=== PATIENT | female | born 1945 | race Caucasian/White ===

== ENCOUNTER 2017-12-14 08:55 | Emergency (ER) | payer OTHER ==
[~2017-12-14] VITALS: Ht 152.4 cm; Wt 49.9 kg
[~2017-12-14 08:55] MED LIST: ASPI325 PO; Amoxicillin500 MG PO; CEPH500 PO; DIAZ5 PO; HYDCOR10; HYDCOR10 PO; LEVSOD100 PO; LEVSOD50 PO; MAGIC MOUTHWASH; NAPR500 PO; SACC250C PO; Synthroid75 MCG PO; THYROX; TIMO10T BOTHEYES; TIMOPTIC 0.25%1 EACH; TIMOPTIC 0.5%1 EACH BOTHEYES; VICODIN 5-3001 EACH PO; Xalatan2.5 ML; Zithromax250 MG PO
== END 2017-12-14 10:14 | disposition home or self-care (01) ==
LOC: ER 08:55
DX: S01.112A Laceration without foreign body of left eyelid and periocular area, initial encounter (principal); W18.30XA Fall on same level, unspecified, initial encounter; Z88.0 Allergy status to penicillin; Z79.899 Other long term (current) drug therapy; E03.9 Hypothyroidism, unspecified
CPT/HCPCS: 12011; 99283

== ENCOUNTER 2018-04-02 13:16 | Inpatient (IN) | payer OTHER ==
[~2018-04-02] VITALS: Ht 170.2 cm; Wt 52.4 kg
[~2018-04-02 13:16] MED LIST changes: -HYDCOR10
[2018-04-02 13:46] LABS: BASOPHILS PERCENT AUTO 1 % (0-2); EOSINOPHILS PERCENT AUTO 0 % (0-6); Hematocrit 45.1 % (33.0-51.0); Hemoglobin 14.7 g/dL (11.5-16.0); IMMATURE GRAN ABSOLUTE AUTO 0.04 K/mm3 (0.00-0.10); IMMATURE GRAN PERCENT AUTO 0 % (0-1); LYMPHOCYTES ABSOLUTE AUTO 2.88 K/mm3 (0.84-5.20); LYMPHOCYTES PERCENT AUTO 23 % (21-46); MONOCYTES ABSOLUTE AUTO 1.79 K/mm3 (0.16-1.47); MONOCYTES PERCENT AUTO 14 % (4-13); Mean Corpuscular HGB 29.1 pg (26.0-34.0); Mean Corpuscular HGB Conc 32.6 g/dL (31.5-36.5); Mean Corpuscular Volume 89 fL (80-100); Mean Platelet Volume 10.6 fL (9.1-12.4); NEUTROPHILS ABSOLUTE AUTO 7.65 K/mm3 (1.96-9.15); NEUTROPHILS PERCENT AUTO 61 % (41-73); Platelet Count 233 K/mm3 (150-400); RDW Coefficient Variation 13.1 % (11.7-14.2); RDW Standard Deviation 42.8 fL (35.1-46.3); Red Blood Cell Count 5.06 M/mm3 (3.80-5.20); White Blood Cell Count 12.46 K/mm3 (4.00-11.30)
[2018-04-02 13:57] LABS: Source, Urine Catheter
[2018-04-02 13:57] LABS: International Normalized Ratio 1.2; Prothrombin Time Results 12.2 Sec (9.7-11.5)
[2018-04-02 14:02] LABS: Bilirubin, Urine Neg (Neg); Blood, Urine 5+ (Neg); Glucose Qualitative, Urine Neg (Neg); Ketones, Urine Neg (Neg); Leukocyte Esterase, Urine 1+ (Neg); Nitrite, Urine Neg (Neg); Protein, Urine 2+ (Neg); Urobilinogen, Urine NORM (Normal)
[2018-04-02 14:08] LABS: Albumin, Blood 4.2 g/dL (3.4-5.0); Bilirubin, Total 0.6 mg/dL (0.1-1.0); Bun/Creatinine Ratio 9.7 (12.0-20.0); Calcium, Blood 9.6 mg/dL (8.5-10.1); Globulin, Blood 4.1 g/dL (2.2-4.0); Potassium, Blood 3.4 mmol/L (3.5-5.5); Total Protein, Blood 8.3 g/dL (6.4-8.2)
[2018-04-02 14:11] LABS: Appearance, Urine Clear (Clear); Color, Urine Yellow (P-Yellow)
[2018-04-02 14:12] LABS: Bacteria Few /hpf; Granular Casts 0-2 /lpf (0); Squamous Epithelial Cells Few /hpf (Few)
[2018-04-02 19:50] LABS: Adenovirus F 40/41 Not Detected (NOT DETECT); Astrovirus Not Detected (NOT DETECT); Campylobacter Sp Not Detected (NOT DETECT); Cryptosporidium Not Detected (NOT DETECT); Cyclospora Cayetanensis Not Detected (NOT DETECT); E. Coli O157 Not Detected (NOT DETECT); Entamoeba Histolytica Not Detected (NOT DETECT); Enteroaggregative E. coli-EAEC Not Detected (NOT DETECT); Enteropathogenic E. coli-EPEC Not Detected (NOT DETECT); Enterotoxigenic E. coli-ETEC Not Detected (NOT DETECT); Giardia Lamblia Not Detected (NOT DETECT); Norovirus GI/GII Not Detected (NOT DETECT); Plesiomonas Shigelloides Not Detected (NOT DETECT); Rotavirus A Not Detected (NOT DETECT); Salmonella Sp Not Detected (NOT DETECT); Sapovirus Not Detected (NOT DETECT); Shiga Toxin-prod E. coli-STEC Not Detected (NOT DETECT); Shigella/Enteroin E. coli-EIEC Not Detected (NOT DETECT); Vibrio Cholerae Not Detected (NOT DETECT); Vibrio Sp Not Detected (NOT DETECT); Yersinia Enterocolitica Not Detected (NOT DETECT)
[2018-04-03 04:25] LABS: Hemoglobin 11.9 g/dL (11.5-16.0); Mean Corpuscular HGB 28.5 pg (26.0-34.0); Mean Corpuscular HGB Conc 32.2 g/dL (31.5-36.5); Mean Corpuscular Volume 89 fL (80-100); Mean Platelet Volume 11.2 fL (9.1-12.4); Platelet Count 145 K/mm3 (150-400); RDW Coefficient Variation 13.3 % (11.7-14.2); RDW Standard Deviation 43.6 fL (35.1-46.3); Red Blood Cell Count 4.18 M/mm3 (3.80-5.20); White Blood Cell Count 8.67 K/mm3 (4.00-11.30)
[2018-04-03 04:44] LABS: Bun/Creatinine Ratio 17.2 (12.0-20.0); Calcium, Blood 8.6 mg/dL (8.5-10.1); Creatinine, Blood 1.57 mg/dL (0.40-1.00); Potassium, Blood 4.4 mmol/L (3.5-5.5)
[2018-04-03] MEDS ORDERED: Xalatan2.5 ML BOTHEYES (12:25)
[2018-04-03] MEDS ORDERED: TIMOPTIC 0.5%1 EACH BOTHEYES (12:26)
[2018-04-03 23:53] LABS: Source, Urine Catheter
[2018-04-03 23:55] LABS: Bilirubin, Urine Neg (Neg); Blood, Urine 5+ (Neg); Glucose Qualitative, Urine Neg (Neg); Ketones, Urine 1+ (Neg); Leukocyte Esterase, Urine 2+ (Neg); Nitrite, Urine Pos (Neg); Protein, Urine 2+ (Neg); Urobilinogen, Urine NORM (Normal)
[2018-04-03 23:56] LABS: Appearance, Urine Hazy (Clear); Color, Urine Yellow (P-Yellow)
[2018-04-04 00:01] LABS: Bacteria Many /hpf; Hyaline Casts 0-2 /lpf (0-2); Squamous Epithelial Cells Not Seen /hpf (Few); White Blood Cells, Urine 25-50 /hpf (0-5)
[2018-04-04 05:38] LABS: Bun/Creatinine Ratio 27.5 (12.0-20.0); Calcium, Blood 9.1 mg/dL (8.5-10.1); Creatinine, Blood 1.2 mg/dL (0.40-1.00); Potassium, Blood 3.7 mmol/L (3.5-5.5)
== END 2018-04-04 13:47 | disposition left against medical advice (07) | DRG 683 ==
LOC: ER 13:16 → PCU 15:51 → MEDS 04-03 21:28
PROVIDERS: Hospitalist; Internal Medicine
DX: N17.9 Acute kidney failure, unspecified (principal); E27.40 Unspecified adrenocortical insufficiency; E24.0 Pituitary-dependent Cushing's disease; E87.2 Acidosis; R65.10 Systemic inflammatory response syndrome (SIRS) of non-infectious origin without acute organ dysfunction; G93.40 Encephalopathy, unspecified; E03.9 Hypothyroidism, unspecified; E86.0 Dehydration; I95.9 Hypotension, unspecified; K52.9 Noninfective gastroenteritis and colitis, unspecified; N28.89 Other specified disorders of kidney and ureter; Z88.0 Allergy status to penicillin; Z79.899 Other long term (current) drug therapy
CPT/HCPCS: 36415; 70450; 71045; 76770; 80048; 80053; 81001; 82272; 83605; 85025; 85027; 85610; 86850; 86900; 86901; 87040; 87077; 87086; 87186; 87507; 93005; 93010; 96361; 96374; 97162; 97530; 99285-25; G8978; G8979; J1720; J3480; J7030; J7120

== ENCOUNTER → 2018-06-29 | Outpatient (CLI) | payer OTHER ==
[~2018-06-29] MED LIST changes: +Xalatan2.5 ML BOTHEYES
[2018-06-29 19:54] LABS: Microalbumin, Urine Quant. 19.6 mg/L (0.000-20.000)
== END | disposition home or self-care (01) ==
LOC: LAB FUT 06-27 13:55 → LAB SHORT 14:36 → LAB 14:36
PROVIDERS: Internal Medicine Nephrology
DX: N18.2 Chronic kidney disease, stage 2 (mild) (principal); D63.1 Anemia in chronic kidney disease; N25.81 Secondary hyperparathyroidism of renal origin; E55.9 Vitamin D deficiency, unspecified; E78.00 Pure hypercholesterolemia, unspecified; R76.9 Abnormal immunological finding in serum, unspecified; R94.5 Abnormal results of liver function studies; R94.6 Abnormal results of thyroid function studies
CPT/HCPCS: 81050; 82043; 82570; 84156

== ENCOUNTER 2018-07-28 19:53 | Inpatient (IN) | payer OTHER ==
[~2018-07-28] VITALS: Ht 160 cm; Wt 54.0 kg
[2018-07-28 20:38] LABS: BASOPHILS ABSOLUTE AUTO 0.07 K/mm3 (0.00-0.23); BASOPHILS PERCENT AUTO 1 % (0-2); EOSINOPHILS ABSOLUTE AUTO 0.08 K/mm3 (0.00-0.68); EOSINOPHILS PERCENT AUTO 1 % (0-6); Hematocrit 37.8 % (33.0-51.0); Hemoglobin 12.6 g/dL (11.5-16.0); IMMATURE GRAN ABSOLUTE AUTO 0.04 K/mm3 (0.00-0.10); IMMATURE GRAN PERCENT AUTO 0 % (0-1); LYMPHOCYTES ABSOLUTE AUTO 1.55 K/mm3 (0.84-5.20); LYMPHOCYTES PERCENT AUTO 14 % (21-46); MONOCYTES ABSOLUTE AUTO 1.51 K/mm3 (0.16-1.47); MONOCYTES PERCENT AUTO 14 % (4-13); Mean Corpuscular HGB 28.7 pg (26.0-34.0); Mean Corpuscular HGB Conc 33.3 g/dL (31.5-36.5); Mean Corpuscular Volume 86 fL (80-100); Mean Platelet Volume 10.1 fL (9.1-12.4); NEUTROPHILS ABSOLUTE AUTO 7.83 K/mm3 (1.96-9.15); NEUTROPHILS PERCENT AUTO 71 % (41-73); Platelet Count 284 K/mm3 (150-400); RDW Coefficient Variation 12.2 % (11.7-14.2); RDW Standard Deviation 38.7 fL (35.1-46.3); Red Blood Cell Count 4.39 M/mm3 (3.80-5.20); White Blood Cell Count 11.08 K/mm3 (4.00-11.30)
[2018-07-28 20:57] LABS: Alanine Aminotransfer (ALT/SGP 17 U/L (12-78); Alk Phos 80 U/L (50-136); Anion Gap 16 mmol/L (6-16); Aspartate Aminotrans (AST/SGOT 14 U/L (12-37); Bilirubin, Total 0.8 mg/dL (0.1-1.0); Blood Urea Nitrogen 15 mg/dL (8-24); Bun/Creatinine Ratio 21.3 (12.0-20.0); CO2, Blood 22 mmol/L (21-32); Calcium, Blood 10.2 mg/dL (8.5-10.1); Chloride, Blood 99 mmol/L (98-108); Creatinine, Blood 0.71 mg/dL (0.40-1.00); Globulin, Blood 4.2 g/dL (2.2-4.0); Glomerular Filtration Rate >60 (60-); Glucose, Blood 58 mg/dL (70-99); Potassium, Blood 3.9 mmol/L (3.5-5.5); Sodium, Blood 137 mmol/L (136-145); Total Protein, Blood 8.2 g/dL (6.4-8.2)
[2018-07-28 21:06] LABS: Influenza A Negative (NEGATIVE); Influenza B Negative (NEGATIVE)
[2018-07-28 21:53] LABS: Magnesium, Blood 1.8 mg/dL (1.6-2.4); Troponin I 0.142 ng/mL (0.000-0.040)
[2018-07-28 22:11] LABS: Source, Urine Clean Catch
[2018-07-28 22:16] LABS: Appearance, Urine Hazy (Clear); Bilirubin, Urine Neg (Neg); Blood, Urine 5+ (Neg); Color, Urine Yellow (P-Yellow); Glucose Qualitative, Urine 2+ (Neg); Ketones, Urine 4+ (Neg); Leukocyte Esterase, Urine 3+ (Neg); Nitrite, Urine Neg (Neg); Protein, Urine 2+ (Neg); Urobilinogen, Urine NORM (Normal)
[2018-07-28 22:25] LABS: Bacteria Mod /hpf; Red Blood Cells, Urine 0-2 /hpf (0-2); Squamous Epithelial Cells Rare /hpf (Few); White Blood Cells, Urine TNTC /hpf (0-5)
[2018-07-28 22:50] LABS: U Amphetamine Screen Not Detected; U Barbituate Screen Not Detected; U Benzodiazapine Screen Not Detected; U Buprenorphine Screen Not Detected; U Cannabinoids Screen Not Detected; U Cocaine Screen Not Detected; U Methadone Screen Not Detected; U Methamphetamine Screen Not Detected; U Opiates Screen Not Detected; U Oxycodone Screen Not Detected; U Phencyclidine Screen Not Detected; U Propoxyphene Screen Not Detected
--- NOTE | 2018-07-29 03:19 | NUR ---
ADMISSION: PATIENT ARRIVED TO ROOM PCU01 AT APPROX 0155 VIA GURNEY FROM ED. PATIENT ALERT AND ORIENTED AND ABLE TO PIVOT TRANSFER FROM GURNEY TO BED, WEAK BUT STEADY. PATIENTS NECK STIFF AND PAINFULL WITH DECREASED ROM, PATIENT STATES THIS HAS BEEN HAPPENING ON AND OFF FOR YEARS. JERODNS SON AT BEDSIDE, ADMISSION COMPLETED, PATIENT ORIENTED TO CALL LIGHT, HOSPITAL POLICES AND EDUCATED ON FALL RISK. BED LOW AND LOCKED WITH EXIT ALARM ON, CALL LIGHT WITHIN REACH.
--- NOTE | 2018-07-29 06:19 | NUR ---
SHIFT SUMMARY: PATIENT HAS A HARD TIME SWALLOWING, CAN DRINK THIN LIQUIDS VERY SLOWLY SITTING ALL THE WAY UP, CANNOT GET PILLS DOWN. PATIENT HAS LOW BLOOD SUGARS SINCE ADMIT, Q4 BLOOD SUGARS ORDERED, APPLE JUICE GIVEN FOR LAST BS OF 68, WILL RECHECK IN 15 MINUTES. PATIENTS GLANDS BILATERAL UPPER NECK ARE SWOLLEN AND TENDER AND PATIENT STATES THAT SALIVA IS THICK AND FOUL, WILL INFORM ONCOMING SHIFT TO INFORM MD. PATIENT BED LOW AND LOCKED WITH EXIT ALARM ON, CALL LIGHT WITHIN REACH AND USED APPROPRIATLY.
[2018-07-29 09:26] LABS: Hematocrit 32.3 % (33.0-51.0); Hemoglobin 10.5 g/dL (11.5-16.0); Mean Corpuscular HGB 28.2 pg (26.0-34.0); Mean Corpuscular HGB Conc 32.5 g/dL (31.5-36.5); Mean Corpuscular Volume 87 fL (80-100); Mean Platelet Volume 10.3 fL (9.1-12.4); Platelet Count 221 K/mm3 (150-400); RDW Coefficient Variation 12.4 % (11.7-14.2); RDW Standard Deviation 39.1 fL (35.1-46.3); Red Blood Cell Count 3.73 M/mm3 (3.80-5.20); White Blood Cell Count 7.85 K/mm3 (4.00-11.30)
[2018-07-29 09:42] LABS: Alanine Aminotransfer (ALT/SGP 14 U/L (12-78); Albumin/Globulin Ratio 0.8 (0.8-1.8); Alk Phos 64 U/L (50-136); Anion Gap 9 mmol/L (6-16); Aspartate Aminotrans (AST/SGOT 16 U/L (12-37); Bilirubin, Total 0.5 mg/dL (0.1-1.0); Blood Urea Nitrogen 11 mg/dL (8-24); Bun/Creatinine Ratio 18.5 (12.0-20.0); CO2, Blood 22 mmol/L (21-32); Calcium, Blood 8.8 mg/dL (8.5-10.1); Chloride, Blood 106 mmol/L (98-108); Globulin, Blood 3.9 g/dL (2.2-4.0); Glomerular Filtration Rate >60 (60-); Glucose, Blood 77 mg/dL (70-99); Potassium, Blood 4.1 mmol/L (3.5-5.5); Sodium, Blood 137 mmol/L (136-145); Total Protein, Blood 6.9 g/dL (6.4-8.2)
--- NOTE | 2018-07-29 16:16 | NUR ---
SHIFT SUMMARY PT RESTING IN BED THROUGHOUT THE MORNING, UP TO RECLINER THIS AFTERNOON. PT APPEARS MUCH MORE COMFORTABLE IN RECLINER. ALERT AND ORIENTED X3. VSS. LUNG SOUNDS EXPIRATORY COARSENESS THROUGHOUT. PT C/O 4-910 NECK AND SHOULDER PAIN, MEDICATED WITH PRN AND SCHEDULED PAIN MEDS. PT UP TO BEDSIDE COMMODE WITH 1 PERSON ASSIST AND FWW. PT REQUESTING JELLO THIS AFTERNOON, TOLERATING CLEAR LIQUIDS WELL.
--- NOTE | 2018-07-29 16:19 | NUR ---
TRANSFER NOTE PT STABLE FOR TRANSFER TO MEDICAL FLOOR. REPORT GIVEN TO JONATHAN HANSON ON MEDICAL FLOOR. PT TRANSFERED TO MEDICAL FLOOR WITH BELONGINGS.
--- NOTE | 2018-07-29 16:28 | NUR ---
REPORT RECIEVED FROM VALENTIN HAMMOND AT 1610. ROOM CLEAN AND REPORT GIVEN TO ZURDO. AWAITING ARRIVAL OF PATIENT AT THIS TIME
--- NOTE | 2018-07-29 18:15 | NUR ---
SHIFT SUMMARY PT ARRIVED TO ROOM AT 1636 VIA WHEELCHAIR AND IS UP TO CHAIR DRINKING DINNER AT THIS TIME. PT UP WITH SBA TO BATHROOM. CHAIR ALARM ON. REPORT RECIEVED FROM STEPHANY AT 1605. VSS. IV PATENT AND INFUSING. LAST CBG AT 1613 WAS 140. TITLE ONE KINDERGARTEN TEACHER WILL REASSESS AROUND 2014. PT AXO X4 PLEASANT AND COOPERATIVE WITH CARE. CALL LIGHT AND TELEPHONE WITHIN REACH
--- NOTE | 2018-07-30 05:00 | NUR ---
73 Y/O FEMALE RESTED COMFORTABLY IN BED ALL EVENING. PT NOTED AT TIMES TO HAVE CONFUSION WHEN NURSE OR BAGGAGE SECURITY CHECKER INITIALLY ENTERS ROOM TO PERFORM TASKS, PT ABLE TO REORIENT SELF WITH POSITIVE ENCOURAGEMENT FROM STAFF. PT WAS TALKING TO FAMILY AT BEGINNING OF SHIFT IN CALM MANNER. PT DENIES PAIN OR NAUSEA. PTS TELEMETRY REFLECTS NSR. PTS BED ALARM APPLIED, BED LOW POSITION, CALL LIGHT AT SIDE.
--- NOTE | 2018-07-30 18:18 | NUR ---
AMA SUMMARY PT NOTIFIED NURSE AT 1630 THAT SHE WANTED TO GO HOME DESPITE MEDICAL ADVICCE TO STAY. RISKS DISCUSSED WITH PATIENT WHO STATED THAT SHE FEELS BETTER AND WILL CALL HER PCP IN THE MORNING TO FOLLOW UP WITH HIM. DR MONCADA NOTIFIED OF IMPENDING AMA, AND STATED THAT SHE WAS NOT READY TO DISCHARGE PATIENT. PATINENT AGAIN CONFIRMED THAT SHE WAS LEAVING DESPITE EDUCATION ABOUT RISKS. PT LEFT VIA WHEELCHAIR, WITH SON PRESENT AND CHARGE NURSE ESCORT AT 1728. NO IV IN PLACE AT THAT TIME. BELONGINGS RETURNED. PRIOR TO THIS DISCUSSION ABOUT AMA, PT AMBULATED WITH PEST CONTROL SERVICE SALES AGENT X4 LAPS AROUND THE UNIT AND STATED THAT SHE WAS BACK TO NORMAL FAR HER MOBILITY. DR MONCADA NOTIFIED AT 1820 THAT PT HAD LEFT AMA.
== END 2018-07-30 17:28 | disposition left against medical advice (07) | DRG 871 ==
LOC: ER 19:53 → PCU 07-29 00:02 → MEDS 07-29 01:50 → PCU 07-29 01:52 → MEDS 07-29 16:33
PROVIDERS: Emergency Medicine; ADMIT Internal Medicine
DX: A41.9 Sepsis, unspecified organism (principal); J18.9 Pneumonia, unspecified organism; G92 Toxic encephalopathy; N39.0 Urinary tract infection, site not specified; E27.40 Unspecified adrenocortical insufficiency; E86.0 Dehydration; R13.10 Dysphagia, unspecified; E16.2 Hypoglycemia, unspecified; E83.52 Hypercalcemia; E03.9 Hypothyroidism, unspecified; H40.9 Unspecified glaucoma; Z79.52 Long term (current) use of systemic steroids; Z51.5 Encounter for palliative care
CPT/HCPCS: 36415; 70450; 70491; 71046; 80053; 81001; 82533; 82947; 83605; 83735; 83880; 84145; 84443; 84484; 85025; 85027; 85651; 87086; 87804; 93005; 93010; 96361; 96374; 96375; 99285-25; J0696; J1720; J1885; J2405; J3010; J7030; J7042; P9612; Q9967

== ENCOUNTER 2018-09-27 10:37 | Emergency (ER) | payer OTHER ==
[~2018-09-27] VITALS: Ht 152.4 cm; Wt 49.9 kg
[2018-09-27 12:01] LABS: BASOPHILS ABSOLUTE AUTO 0.07 K/mm3 (0.00-0.23); BASOPHILS PERCENT AUTO 1 % (0-2); EOSINOPHILS ABSOLUTE AUTO 0.32 K/mm3 (0.00-0.68); EOSINOPHILS PERCENT AUTO 3 % (0-6); Hemoglobin 11.5 g/dL (11.5-16.0); IMMATURE GRAN ABSOLUTE AUTO 0.03 K/mm3 (0.00-0.10); IMMATURE GRAN PERCENT AUTO 0 % (0-1); LYMPHOCYTES ABSOLUTE AUTO 1.36 K/mm3 (0.84-5.20); LYMPHOCYTES PERCENT AUTO 14 % (21-46); MONOCYTES ABSOLUTE AUTO 0.93 K/mm3 (0.16-1.47); MONOCYTES PERCENT AUTO 9 % (4-13); Mean Corpuscular HGB 28.1 pg (26.0-34.0); Mean Corpuscular HGB Conc 32.9 g/dL (31.5-36.5); Mean Corpuscular Volume 86 fL (80-100); NEUTROPHILS ABSOLUTE AUTO 7.34 K/mm3 (1.96-9.15); NEUTROPHILS PERCENT AUTO 73 % (41-73); RDW Coefficient Variation 13.1 % (11.7-14.2); RDW Standard Deviation 41.1 fL (35.1-46.3); Red Blood Cell Count 4.09 M/mm3 (3.80-5.20); White Blood Cell Count 10.05 K/mm3 (4.00-11.30)
[2018-09-27 12:25] LABS: Mean Platelet Volume 10.8 fL (9.1-12.4); Platelet Count 233 K/mm3 (150-400)
[2018-09-27] MEDS ORDERED: NAPR550 PO (13:17)
[2018-09-27] MEDS ORDERED: Norco 5-325 Ta1 EACH PO (13:19)
== END 2018-09-27 13:23 | disposition home or self-care (01) ==
LOC: ER 10:37
PROVIDERS: Physician Assistant
DX: M25.572 Pain in left ankle and joints of left foot (principal); R07.81 Pleurodynia; M10.9 Gout, unspecified; E03.9 Hypothyroidism, unspecified; Z79.899 Other long term (current) drug therapy; Z88.0 Allergy status to penicillin; W18.30XA Fall on same level, unspecified, initial encounter
CPT/HCPCS: 71101; 73610; 84550; 85025; 93971; 99284-25

== ENCOUNTER 2020-03-30 15:46 | Observation (INO) | payer OTHER ==
[~2020-03-30] VITALS: Ht 152.4 cm; Wt 48.7 kg
[~2020-03-30 15:46] MED LIST changes: +NAPR550 PO; +Norco 5-325 Ta1 EACH PO
[2020-03-30 16:16] LABS: BASOPHILS ABSOLUTE AUTO 0.06 K/mm3 (0.00-0.23); BASOPHILS PERCENT AUTO 1 % (0-2); EOSINOPHILS ABSOLUTE AUTO 0.23 K/mm3 (0.00-0.68); EOSINOPHILS PERCENT AUTO 2 % (0-6); Hematocrit 37.4 % (33.0-51.0); Hemoglobin 12.2 g/dL (11.5-16.0); IMMATURE GRAN ABSOLUTE AUTO 0.02 K/mm3 (0.00-0.10); IMMATURE GRAN PERCENT AUTO 0 % (0-1); LYMPHOCYTES ABSOLUTE AUTO 1.91 K/mm3 (0.84-5.20); LYMPHOCYTES PERCENT AUTO 19 % (21-46); MONOCYTES ABSOLUTE AUTO 0.85 K/mm3 (0.16-1.47); MONOCYTES PERCENT AUTO 9 % (4-13); Mean Corpuscular HGB 27.4 pg (26.0-34.0); Mean Corpuscular HGB Conc 32.6 g/dL (31.5-36.5); Mean Corpuscular Volume 84 fL (80-100); Mean Platelet Volume 10.2 fL (9.1-12.4); NEUTROPHILS PERCENT AUTO 69 % (41-73); Platelet Count 239 K/mm3 (150-400); RDW Coefficient Variation 12.8 % (11.7-14.2); RDW Standard Deviation 39.4 fL (35.1-46.3); Red Blood Cell Count 4.45 M/mm3 (3.80-5.20); White Blood Cell Count 9.87 K/mm3 (4.00-11.30)
[2020-03-30 16:47] LABS: Alanine Aminotransfer (ALT/SGP 16 U/L (12-78); Albumin, Blood 3.6 g/dL (3.4-5.0); Albumin/Globulin Ratio 0.9 (0.8-1.8); Alk Phos 77 U/L (50-136); Anion Gap 10 mmol/L (6-16); Aspartate Aminotrans (AST/SGOT 15 U/L (12-37); Bilirubin, Total 0.7 mg/dL (0.1-1.0); Blood Urea Nitrogen 18 mg/dL (8-24); Bun/Creatinine Ratio 21.3 (12.0-20.0); CO2, Blood 23 mmol/L (21-32); Calcium, Blood 9.9 mg/dL (8.5-10.1); Chloride, Blood 102 mmol/L (98-108); Creatinine, Blood 0.84 mg/dL (0.40-1.00); Globulin, Blood 3.9 g/dL (2.2-4.0); Glomerular Filtration Rate >60 (60-); Glucose, Blood 81 mg/dL (70-99); Sodium, Blood 135 mmol/L (136-145); Total Protein, Blood 7.5 g/dL (6.4-8.2)
[2020-03-30] MEDS ORDERED: Cortef5 MG PO (18:07)
[2020-03-30] MEDS ORDERED: LEVSOD100 PO (18:08)
[2020-03-30] MEDS ORDERED: TIMOLOL MALEATE5 ML BOTHEYES (18:20)
[2020-03-30] MEDS ORDERED: Hydrocortisone10 MG PO (18:20)
--- NOTE | 2020-03-30 21:00 | NUR ---
RECEIVED HAND OFF FROM Kerline TURCIOS RN USING SBAR. TRANSPORTED TO ROOM VIA WHEELCHAIR. TRANSFERED SELF TO COMMODE WITH STANDBY ASSISTANCE, URINE SAMPLE COLLECTED AND SENT PER MD ORDERS. TRANSFERED TO BED WITH STANDBY ASSISTANCE, TOLERATED WELL. AAO X4, ORTEGA, FOLLOWS ALL COMMANDS. ORIENTED TO ROOM, CALL SYSTEM, AND POC, VOICES UNDERSTANDING. RESPIRATIONS EVEN AND UNLABORED ON ROOM AIR. LUNG SOUNDS CLEAR BILATERALLY. ABDOMEN TENDER AND NONDISTENDED. BOWEL SOUNDS NOTED IN ALL QUADS. DENIES BM TODAY, BUT STATES THAT SHE IS PASSING ADEQUATE FLATUS. CONTINENT OF BOWEL AND BLADDER, USES COMMODE. RIGHT FA 20G PIV IS PATENT, FLUSHING WITH EASE WHILE INFUSING ROCEPHIN 2GM AT 100ML/HR PER ER MD ORDERS, UPON COMPLETION D5 1/2NS WITH 20MEQ KCL STARTED AT 100ML/HR PER EMAR. ORAL CARE SETUP PLACED AT BEDSIDE. DENIES PAIN, DISCOMFORT, OR FURTHER NEEDS AT THIS TIME. ADMISSION ASSESSMENT IN PROGRESS. SAFETY MEASURES IN PLACE. WILL CONTINUE TO MONITOR.
[2020-03-30 21:08] LABS: Influenza A, PCR Negative (NEGATIVE); Influenza B, PCR Negative (NEGATIVE); Resp Syncytial Virus, PCR Negative (NEGATIVE); SARS-Cov-2 (COVID-19) PCR, MMC Negative (NEGATIVE)
[2020-03-30 22:02] LABS: Source, Urine Clean Catch
[2020-03-30 22:10] LABS: Bilirubin, Urine Neg (Neg); Blood, Urine 3+ (Neg); Glucose Qualitative, Urine Neg (Neg); Ketones, Urine 2+ (Neg); Leukocyte Esterase, Urine 1+ (Neg); Nitrite, Urine Neg (Neg); Protein, Urine Neg (Neg); Specific Gravity, Urine 1.015 (1.003-1.022); Urobilinogen, Urine NORM (Normal)
[2020-03-30 22:15] LABS: Appearance, Urine Clear (Clear); Color, Urine Yellow (P-Yellow)
[2020-03-30 22:16] LABS: Bacteria Mod /hpf; Hyaline Casts 0-2 /lpf (0-2); Red Blood Cells, Urine 0-2 /hpf (0-2); Squamous Epithelial Cells Few /hpf (Few); White Blood Cells, Urine 0-2 /hpf (0-5)
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
--- NOTE | 2020-03-31 17:36 | NUR ---
SHIFT SUMMARY PT HAS DONE WELL THIS SHIFT. NO C/O ABD PAIN THIS SHIFT. MEDICATED WITH TYLENOL FOR SHOULDER/BACK PAIN. PLAN TO CONTINUE IV ABX.
--- NOTE | 2020-04-01 05:09 | NUR ---
SHIFT SUMMARY PT RESTED INFREQUENTLY T/O NIGHT. AAOX4. ABD DISCOMFORT AT TOLERABLE LEVEL T/O NIGHT, DENIES PAIN MEDICATION. NO NAUSEA/EMESIS. PT UP TO RESTROOM SBA. IVF + ABX PER ORDERS. PT REPORTING MODERATE DISCOMFORT FROM CHRONIC BACK PAIN. EGG CRATE + MULTIPLE PILLOWS GIVEN. PT CURRENTLY SITTING UP IN CHAIR READING BOOK WITH CALL LIGHT IN REACH.
[2020-04-01 05:34] LABS: BASOPHILS ABSOLUTE AUTO 0.03 K/mm3 (0.00-0.23); BASOPHILS PERCENT AUTO 1 % (0-2); EOSINOPHILS PERCENT AUTO 7 % (0-6); Hematocrit 32.3 % (33.0-51.0); Hemoglobin 10.4 g/dL (11.5-16.0); IMMATURE GRAN ABSOLUTE AUTO 0.01 K/mm3 (0.00-0.10); IMMATURE GRAN PERCENT AUTO 0 % (0-1); LYMPHOCYTES ABSOLUTE AUTO 1.14 K/mm3 (0.84-5.20); LYMPHOCYTES PERCENT AUTO 27 % (21-46); MONOCYTES ABSOLUTE AUTO 0.46 K/mm3 (0.16-1.47); MONOCYTES PERCENT AUTO 11 % (4-13); Mean Corpuscular HGB 27.2 pg (26.0-34.0); Mean Corpuscular HGB Conc 32.2 g/dL (31.5-36.5); Mean Corpuscular Volume 85 fL (80-100); Mean Platelet Volume 10.7 fL (9.1-12.4); NEUTROPHILS ABSOLUTE AUTO 2.28 K/mm3 (1.96-9.15); NEUTROPHILS PERCENT AUTO 54 % (41-73); Platelet Count 199 K/mm3 (150-400); RDW Coefficient Variation 12.7 % (11.7-14.2); Red Blood Cell Count 3.82 M/mm3 (3.80-5.20); White Blood Cell Count 4.22 K/mm3 (4.00-11.30)
[2020-04-01 05:56] LABS: Anion Gap 5 mmol/L (6-16); Blood Urea Nitrogen 12 mg/dL (8-24); Bun/Creatinine Ratio 13.1 (12.0-20.0); CO2, Blood 27 mmol/L (21-32); Chloride, Blood 110 mmol/L (98-108); Creatinine, Blood 0.91 mg/dL (0.40-1.00); Glomerular Filtration Rate >60 (60-); Glucose, Blood 83 mg/dL (70-99); Potassium, Blood 4.9 mmol/L (3.5-5.5); Sodium, Blood 142 mmol/L (136-145)
[2020-04-01] MEDS ORDERED: AMOCLA875 PO (14:56)
--- NOTE | 2020-04-01 16:26 | NUR ---
DISCHARGE PT DISCHARGED HOME FROM UNIT AT APROX 1600. PT GIVEN WRITTEN AND VERBAL DISCHARGE INSTRUCTIONS AND VERBALIZED UNDERSTANDING OF THESE INSTRUCTIONS. RX FOR ANTIBIOTIC CALLED TO [facility]. WHEELCHAIR TO CAR.
== END 2020-04-01 16:32 | disposition home or self-care (01) ==
LOC: ER 15:46 → SURS 15:47 → ER 18:53 → SURS 20:03
PROVIDERS: Physician Assistant; Surgery; ADMIT Surgery
DX: K35.80 Unspecified acute appendicitis (principal); E03.9 Hypothyroidism, unspecified; H40.9 Unspecified glaucoma; Z90.5 Acquired absence of kidney; Z85.528 Personal history of other malignant neoplasm of kidney; Z88.0 Allergy status to penicillin; Z88.1 Allergy status to other antibiotic agents; Z79.52 Long term (current) use of systemic steroids; Z79.899 Other long term (current) drug therapy; Z20.828 Contact with and (suspected) exposure to other viral communicable diseases; Z23 Encounter for immunization
CPT/HCPCS: 0241U; 36415; 74177; 76857; 80048; 80053; 81001; 83690; 85025; 87086; 96374-59; 99285-25; A9270; G0378; J0694; J0696; Q9967

== ENCOUNTER → 2021-10-29 | Outpatient (CLI) | payer OTHER ==
[~2021-10-29] MED LIST changes: +AMOCLA875 PO; +Cortef5 MG PO; +Hydrocortisone10 MG PO; +TIMOLOL MALEATE5 ML BOTHEYES
== END | disposition home or self-care (01) ==
LOC: LAB 15:55 → LAB SHORT 15:55
DX: N39.0 Urinary tract infection, site not specified (principal)
CPT/HCPCS: 87077; 87086; 87186

== ENCOUNTER 2022-01-23 20:45 | Inpatient (IN) | payer OTHER ==
[~2022-01-23] VITALS: Ht 165.1 cm; Wt 51.1 kg
[~2022-01-23 20:45] MED LIST changes: -Hydrocortisone10 MG PO
[2022-01-23 21:19] LABS: Source, Urine Straight Cath
[2022-01-23 21:21] LABS: BASOPHILS ABSOLUTE AUTO 0.09 K/mm3 (0.00-0.23); BASOPHILS PERCENT AUTO 1 % (0-2); EOSINOPHILS ABSOLUTE AUTO 0.15 K/mm3 (0.00-0.68); EOSINOPHILS PERCENT AUTO 1 % (0-6); Hematocrit 45.3 % (33.0-51.0); Hemoglobin 15.4 g/dL (11.5-16.0); IMMATURE GRAN ABSOLUTE AUTO 0.08 K/mm3 (0.00-0.10); IMMATURE GRAN PERCENT AUTO 1 % (0-1); LYMPHOCYTES ABSOLUTE AUTO 2.24 K/mm3 (0.84-5.20); LYMPHOCYTES PERCENT AUTO 13 % (21-46); MONOCYTES ABSOLUTE AUTO 2.29 K/mm3 (0.16-1.47); MONOCYTES PERCENT AUTO 14 % (4-13); Mean Corpuscular HGB 28.7 pg (26.0-34.0); Mean Corpuscular Volume 84 fL (80-100); Mean Platelet Volume 10.4 fL (9.1-12.4); NEUTROPHILS ABSOLUTE AUTO 11.99 K/mm3 (1.96-9.15); NEUTROPHILS PERCENT AUTO 71 % (41-73); Platelet Count 284 K/mm3 (150-400); RDW Coefficient Variation 12.6 % (11.7-14.2); RDW Standard Deviation 38.6 fL (35.1-46.3); Red Blood Cell Count 5.37 M/mm3 (3.80-5.20); White Blood Cell Count 16.84 K/mm3 (4.00-11.30)
[2022-01-23 21:23] LABS: Appearance, Urine Hazy (Clear); Bilirubin, Urine Neg (Neg); Blood, Urine 5+ (Neg); Color, Urine Yellow (P-Yellow); Glucose Qualitative, Urine Neg (Neg); Ketones, Urine 4+ (Neg); Leukocyte Esterase, Urine Neg (Neg); Nitrite, Urine Neg (Neg); Protein, Urine 3+ (Neg); Urobilinogen, Urine NORM (Normal)
[2022-01-23] MEDS ORDERED: EUTHYROX100 MC1 PO (21:24)
[2022-01-23 21:32] LABS: Amorphous Light (0-Heavy); Bacteria Many /hpf; Red Blood Cells, Urine 0-2 /hpf (0-2); Squamous Epithelial Cells Not Seen /hpf (Few); White Blood Cells, Urine 0-2 /hpf (0-5)
[2022-01-23 21:50] LABS: Magnesium, Blood 1.6 mg/dL (1.6-2.4)
[2022-01-23 21:56] LABS: Albumin, Blood 3.7 g/dL (3.4-5.0); Albumin/Globulin Ratio 0.8 (0.8-1.8); Bilirubin, Total 1.3 mg/dL (0.1-1.0); Bun/Creatinine Ratio 26.7 (12.0-20.0); Creatinine, Blood 1.01 mg/dL (0.40-1.00); Globulin, Blood 4.5 g/dL (2.2-4.0); Potassium, Blood 4.3 mmol/L (3.5-5.5); Total Protein, Blood 8.2 g/dL (6.4-8.2)
[2022-01-23 22:40] LABS: Influenza A, PCR NEGATIVE (NEGATIVE); Influenza B, PCR NEGATIVE (NEGATIVE); Resp Syncytial Virus, PCR NEGATIVE (NEGATIVE); SARS-Cov-2 (COVID-19) PCR, MMC NEGATIVE (NEGATIVE)
[2022-01-24 00:28] LABS: Free Thyroxine 1.08 ng/dL (0.70-1.60); Thyroid Stimulating Hormone 3.64 uIU/mL (0.360-4.800); Triiodothyronine, Free 1.73 pg/mL (2.18-3.98)
[2022-01-24 05:55] LABS: Adenovirus F 40/41 Not Detected (NOT DETECT); Astrovirus Not Detected (NOT DETECT); Campylobacter Sp Not Detected (NOT DETECT); Cryptosporidium Not Detected (NOT DETECT); Cyclospora Cayetanensis Not Detected (NOT DETECT); E. Coli O157 Not Detected (NOT DETECT); Entamoeba Histolytica Not Detected (NOT DETECT); Enteroaggregative E. coli-EAEC Not Detected (NOT DETECT); Enteropathogenic E. coli-EPEC Not Detected (NOT DETECT); Enterotoxigenic E. coli-ETEC Not Detected (NOT DETECT); Giardia Lamblia Not Detected (NOT DETECT); Norovirus GI/GII Not Detected (NOT DETECT); Plesiomonas Shigelloides Not Detected (NOT DETECT); Rotavirus A Not Detected (NOT DETECT); Salmonella Sp Not Detected (NOT DETECT); Sapovirus Not Detected (NOT DETECT); Shiga Toxin-prod E. coli-STEC Not Detected (NOT DETECT); Shigella/Enteroin E. coli-EIEC Not Detected (NOT DETECT); Vibrio Cholerae Not Detected (NOT DETECT); Vibrio Sp Not Detected (NOT DETECT); Yersinia Enterocolitica Not Detected (NOT DETECT)
[2022-01-24 07:52] LABS: Bun/Creatinine Ratio 22.3 (12.0-20.0); Calcium, Blood 8.7 mg/dL (8.5-10.1); Creatinine, Blood 1.03 mg/dL (0.40-1.00); Potassium, Blood 3.4 mmol/L (3.5-5.5)
[2022-01-24 08:18] LABS: BASOPHILS ABSOLUTE AUTO 0.02 K/mm3 (0.00-0.23); BASOPHILS PERCENT AUTO 0 % (0-2); EOSINOPHILS PERCENT AUTO 0 % (0-6); Hemoglobin 11.8 g/dL (11.5-16.0); IMMATURE GRAN ABSOLUTE AUTO 0.06 K/mm3 (0.00-0.10); IMMATURE GRAN PERCENT AUTO 0 % (0-1); LYMPHOCYTES ABSOLUTE AUTO 0.64 K/mm3 (0.84-5.20); LYMPHOCYTES PERCENT AUTO 5 % (21-46); MONOCYTES ABSOLUTE AUTO 0.74 K/mm3 (0.16-1.47); MONOCYTES PERCENT AUTO 5 % (4-13); Mean Corpuscular HGB 29.4 pg (26.0-34.0); Mean Corpuscular HGB Conc 34.7 g/dL (31.5-36.5); Mean Corpuscular Volume 85 fL (80-100); Mean Platelet Volume 10.2 fL (9.1-12.4); NEUTROPHILS ABSOLUTE AUTO 12.24 K/mm3 (1.96-9.15); NEUTROPHILS PERCENT AUTO 89 % (41-73); Platelet Count 210 K/mm3 (150-400); RDW Coefficient Variation 12.8 % (11.7-14.2); RDW Standard Deviation 39.4 fL (35.1-46.3); Red Blood Cell Count 4.01 M/mm3 (3.80-5.20)
--- NOTE | 2022-01-24 10:08 | NUR ---
ASSUMPTION OF CARE PT IS ALERT AND ORIENTED. MAP >65; W/ 3 MCG OF LEVOPHED PUT ON STANDBY. SPO2 >92% ON RA. PT HAS SON AT BEDSIDE WHO INFORMED US THAT THE PT'S SLURRED SPEECH IS NEW FROM WITHIN THE PAST TWO DAYS. PT STATED SHE FELT LIKE HER THROAT WAS SWELLING BEFORE COMING IN; AND THAT HER NECK/SHOULDER IS SORE FROM SLEEPING WRONG A FEW DAYS BEFORE. BICARB AND POTASSIUM INFUSING PER ORDER. ALTMAN CATHETER DRAINING TO GRAVITY. PT AND PT'S SON ALSO REQUESTED FOR POSSIBLE HOME HEALTH AND DESIRE TO SPEAK WITH PALLIATIVE CARE/BIOMECHANICAL ENGINEER. PALLIATIVE CARE CONSULT NOTED IN ORDERS.
--- NOTE | 2022-01-24 18:41 | NUR ---
PT TRANSFERRED FROM ICU 8 TO PCU 2 RECEIVED REPORT FROM ISELA RN AND NAREN RN AT BEDSIDE, TRANSFERRED AT APPROX 1600. PT ALERT AND ORIENTED MOSTLY NOW AT BASELINE PT WAS TRANSFERRED VIA WHEELCHAIR HAS SOME MILD TREMORS WHICH PT STATED SHE'S ANXIOUS AND IS COLD. PT HAS A STIFF NECK AND C/O NECK AND SHOULDER PAIN WHEN MOVED HAS TO BE ASSISTED WHEN REPOSITIONED IN BED. PT REPORTED IBS AND ALREADY HAD 2 LOOSE BM'S SINCE TRANSFER IMMODIUM TABS WAS GIVEN. VITALS HRR 70'S SR BP SYSTOLIC 120'S, SATS ABOVE 95% ON RA, AFEBRILE. SODIUM BICARB INFUSING AT 75MLS/HR TO FINISH 1 BAG. PT NOW IN BED EATING DINNER, NO COMPLAINS AT THIS TIME, CALL LIGHTS IN REACH WILL REPORT TO ONCOMING SHIFT
--- NOTE | 2022-01-24 22:05 | NUR ---
CARE ASSUMPTION: RECEIVED REPORT FROM OFF-GOING RN, PATIENT ICU XFER TODAY. PATIENT A&O X4, USES CALL LIGHT APPROPRIATELY, REPORTS LOW APPETITE. SAT ON SIDE OF BED TO EAT. MEDICATED PER EMAR. PATIENT SPOKE TO SON ON THE PHONE. BED LOW WITH CALL LIGHT IN REACH. PATIENT ASLEEP AT THIS TIME.
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
--- NOTE | 2022-01-25 06:18 | NUR ---
SHIFT SUMMARY: PATIENT A&O X4, VS WNL ON RA, DENIES CHEST PAIN/SOB/DIZZINESS. TREMORS AT BASELINE AND BLIND IN R EYE. PATIENT REPORTS SHE IS FEELING "MUCH BETTER" TODAY. IVS PATENT. ALTMAN DRAINING TO GRAVITY. PATIENT HAD ONE EPISODE OF INCONTINENT LOOSE STOOL THIS SHIFT. MEDICATED PER EMAR. NO ADVERSE EVENTS THIS SHIFT. CALLS APPROPRIATELY AND HAS BEEN COOPERATIVE WITH CARE FOR NURSING STAFF. SEE PREVIOUS NOTE RE: LAB. BED LOW WITH CALL LIGHT IN REACH. WILL CONTINUE TO MONITOR UNTIL REPORT TO DAY RN.
[2022-01-25 07:59] LABS: BASOPHILS ABSOLUTE AUTO 0.01 K/mm3 (0.00-0.23); BASOPHILS PERCENT AUTO 0 % (0-2); EOSINOPHILS PERCENT AUTO 0 % (0-6); Hematocrit 31.7 % (33.0-51.0); IMMATURE GRAN ABSOLUTE AUTO 0.08 K/mm3 (0.00-0.10); IMMATURE GRAN PERCENT AUTO 1 % (0-1); LYMPHOCYTES ABSOLUTE AUTO 0.61 K/mm3 (0.84-5.20); LYMPHOCYTES PERCENT AUTO 4 % (21-46); MONOCYTES ABSOLUTE AUTO 0.71 K/mm3 (0.16-1.47); MONOCYTES PERCENT AUTO 4 % (4-13); Mean Corpuscular HGB 28.8 pg (26.0-34.0); Mean Corpuscular HGB Conc 34.7 g/dL (31.5-36.5); Mean Corpuscular Volume 83 fL (80-100); Mean Platelet Volume 10.4 fL (9.1-12.4); NEUTROPHILS ABSOLUTE AUTO 15.52 K/mm3 (1.96-9.15); NEUTROPHILS PERCENT AUTO 92 % (41-73); Platelet Count 231 K/mm3 (150-400); RDW Coefficient Variation 13.1 % (11.7-14.2); RDW Standard Deviation 39.3 fL (35.1-46.3); Red Blood Cell Count 3.82 M/mm3 (3.80-5.20); White Blood Cell Count 16.93 K/mm3 (4.00-11.30)
[2022-01-25 08:33] LABS: Albumin, Blood 2.9 g/dL (3.4-5.0); Albumin/Globulin Ratio 0.8 (0.8-1.8); Bilirubin, Total 0.4 mg/dL (0.1-1.0); Bun/Creatinine Ratio 20.3 (12.0-20.0); Calcium, Blood 9.1 mg/dL (8.5-10.1); Creatinine, Blood 0.94 mg/dL (0.40-1.00); Globulin, Blood 3.5 g/dL (2.2-4.0); Potassium, Blood 4.3 mmol/L (3.5-5.5); Total Protein, Blood 6.4 g/dL (6.4-8.2)
--- NOTE | 2022-01-25 17:31 | NUR ---
SHIFT SUMMARY PATIENT TRANSFERED FROM PCU AT 1620. PATIENT SETTLED INTO ROOM. PATIENT ORIENTED TO CALL LIGHT AND TV CONTROL. 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 RIGHT HAND IV REMOVED DUE TO NOT BEING PATENT. IV TO LEFT FOREARM FLUSHES FINE. PATIENT IS A SBA WITH A FWW. PATIENT EATING AND DRINKING WELL. PER REPORT ALTMAN REMOVED THIS MORNING, PATIENT URINATING WELL. PATIENT IS PLEASANT AND COOPERATIVE WITH CARE.
--- NOTE | 2022-01-25 17:41 | NUR ---
PT TRANSFERRED TO 333 APPROX AT 1600, PT STATUS CHANGED TO MEDICAL WITH NO TELE. REPORT GIVEN JOSE HANSON. NO ACUTE CHANGE FOR THE SHIFT, VITALS HAS BEEN STABLE, ALTMAN WAS DISCONTINUED PT WAS ABLE TO VOID WITH NO ISSUES. PT WORKED WITH PT/OT WAS ABLE TO AMBULATE IN THE ROOM WITH THE WALKER. SBA TO TRANSFER TO THE BATHROOM. PT STILL HAVING LOOSE BM'S IMMODIUM WAS GIVEN ONCE FOR THE SHIFT PT REPORTED INEFFECTIVE REQUESTED PEPPERMINT TEA AND IT HELPED. NO OTHER ISSUES REPORTED PT TRANSPORTED VIA WHEELCHAIR ALL BELONGINGS SENT WITH THE PT
--- NOTE | 2022-01-26 05:22 | NUR ---
SUMMARY: PT A/O, IS PLEASANT AND COOPERATIVE W/CARE AND APPROPRIATELY SPECIFIES NEEDS. SHE IS BLIND IN HER R.EYE BUT IS ABLE TO SELF CARE W/SOME SETUP ASSIST AND AMBULATES IN HER ROOM W/FWW. SHE CONT'S TO HAVE SOME LOOSE STOOLS FROM IBS AND OCC URINARY URGE INCONTINENCE. ATTENDS/PULLUP CHANGED PRN. MAALOX GIVEN FOR RELIEF OF BLOATING AND GI UPSET THAT SHE REPORTED AN ISSUE AFTER RECIEVING IMMODIUM ON DAY SHIFT. PT DENIED PAIN MEDS AND SLEEP AID DESPITE FEELING SOME NECK DISCOMFORT AND C/O DIFFICULTY GETTING REST SINCE ADMISSION. NO ACUTE CHANGES, VSS/AFEBRILE. WCTM AND REPORT TO DAY RN.
[2022-01-26 05:41] LABS: BASOPHILS ABSOLUTE AUTO 0.01 K/mm3 (0.00-0.23); BASOPHILS PERCENT AUTO 0 % (0-2); EOSINOPHILS PERCENT AUTO 0 % (0-6); Hematocrit 30.6 % (33.0-51.0); Hemoglobin 10.2 g/dL (11.5-16.0); IMMATURE GRAN ABSOLUTE AUTO 0.08 K/mm3 (0.00-0.10); IMMATURE GRAN PERCENT AUTO 1 % (0-1); LYMPHOCYTES ABSOLUTE AUTO 0.65 K/mm3 (0.84-5.20); LYMPHOCYTES PERCENT AUTO 5 % (21-46); MONOCYTES PERCENT AUTO 3 % (4-13); Mean Corpuscular HGB 27.9 pg (26.0-34.0); Mean Corpuscular HGB Conc 33.3 g/dL (31.5-36.5); Mean Corpuscular Volume 84 fL (80-100); Mean Platelet Volume 10.7 fL (9.1-12.4); NEUTROPHILS ABSOLUTE AUTO 11.36 K/mm3 (1.96-9.15); NEUTROPHILS PERCENT AUTO 91 % (41-73); Platelet Count 260 K/mm3 (150-400); RDW Coefficient Variation 13.2 % (11.7-14.2); RDW Standard Deviation 40.1 fL (35.1-46.3); Red Blood Cell Count 3.65 M/mm3 (3.80-5.20)
[2022-01-26 06:13] LABS: Bun/Creatinine Ratio 22.6 (12.0-20.0); Calcium, Blood 9.5 mg/dL (8.5-10.1); Creatinine, Blood 0.97 mg/dL (0.40-1.00)
[2022-01-26] MEDS ORDERED: ACET500 PO (12:15)
[2022-01-26] MEDS ORDERED: ALPR.5 PO (12:16)
[2022-01-26] MEDS ORDERED: LOSA50 PO (12:17)
[2022-01-26] MEDS ORDERED: Primidone50 MG PO (12:18)
[2022-01-26] MEDS ORDERED: PROP80ER PO (12:18)
[2022-01-26] MEDS ORDERED: OZEMPIC0.25 MG/0. SC (12:20)
[2022-01-26] MEDS ORDERED: Simvastatin10 MG PO (12:21)
[2022-01-26] MEDS ORDERED: Hair, Skin & N1 EACH PO (12:24)
[2022-01-26] MEDS ORDERED: TRAZ50 PO (12:24)
[2022-01-26] MEDS ORDERED: DOCU100 PO (12:26)
[2022-01-26] MEDS ORDERED: HYDROCORTISONE-28 GM TOP (12:27)
[2022-01-26] MEDS ORDERED: [UNRECOGNIZED DRUG - OTHER] (12:32)
[2022-01-26] MEDS ORDERED: LOPE2C PO (12:46)
[2022-01-26] MEDS ORDERED: Voltaren100 GM TOP (12:48)
[2022-01-26] MEDS ORDERED: VISBIOME 112.51 EACH PO (12:49)
--- NOTE | 2022-01-26 15:46 | NUR ---
DISCHARGE SUMMARY PATIENT IS ALERT AND ORIENTED. PATIENT HAS BEEN IND IN ROOM. PATIENT HAS HAD NO ACUTE EVENTS THIS SHIFT. PATIENT IS BEING DISCHARGED HOME WITH FRIEND DRIVING PT. PATIENT IS WHEELED OUT BY SHOE CLEANER. PATIENT WAS EDUCATED AND MEDICATIONS FAXED.
== END 2022-01-26 15:32 | disposition home health service (06) | DRG 643 ==
LOC: ER 20:45 → MEDS 01-24 06:08 → PCU 01-24 06:08 → ICUE 01-24 07:30 → PCU 01-24 15:24 → MEDS 01-25 16:18
PROVIDERS: Internal Medicine; Student in an Organized Health Care Education/Training Program; ADMIT Internal Medicine
PROC: 5A12012 Performance of Cardiac Output, Single, Manual (ICD-10-PCS; principal; 2022-01-24)
PROC: 3E033XZ Introduction of Vasopressor into Peripheral Vein, Percutaneous Approach (ICD-10-PCS; 2022-01-24)
DX: E27.2 Addisonian crisis (principal); I46.8 Cardiac arrest due to other underlying condition; R57.8 Other shock; N17.9 Acute kidney failure, unspecified; I47.1 Supraventricular tachycardia; N30.00 Acute cystitis without hematuria; E03.9 Hypothyroidism, unspecified; Z20.822 Contact with and (suspected) exposure to COVID-19; H40.9 Unspecified glaucoma; B96.20 Unspecified Escherichia coli [E. coli] as the cause of diseases classified elsewhere; R47.1 Dysarthria and anarthria; E16.2 Hypoglycemia, unspecified; E86.0 Dehydration; K20.90 Esophagitis, unspecified without bleeding; G89.29 Other chronic pain; M54.9 Dorsalgia, unspecified; K58.0 Irritable bowel syndrome with diarrhea; Z85.53 Personal history of malignant neoplasm of renal pelvis; Z90.5 Acquired absence of kidney; Z88.0 Allergy status to penicillin; Z88.1 Allergy status to other antibiotic agents; Z79.2 Long term (current) use of antibiotics; Z79.890 Hormone replacement therapy; Z79.899 Other long term (current) drug therapy
CPT/HCPCS: 0241U; 36415; 51702; 70450; 71045; 71250; 74177; 80048; 80053; 81001; 82947; 83605; 83735; 83880; 84145; 84439; 84443; 84481; 85025; 87040; 87077; 87086; 87186; 87507; 93005; 93010; 93306; 96361-59; 96365-59; 96366-59; 96367-59; 96375-59; 96376-59; 97116; 97162; 97165; 97530; 97535; 99291-25; 99292; A9270; C9113; J0696; J1720; J1885; J2405; J2765; J3360; J3370; J3475; J3480; J7030; J7050; J7060; J7070; J7120; Q9967